=== PATIENT | male | born 1935 | race Caucasian/White ===

== ENCOUNTER 2017-04-05 19:50 | Emergency (ER) | payer MEDICARE, BC ==
[~2017-04-05] VITALS: Ht 185.4 cm; Wt 88.0 kg
[2017-04-05 19:55] VITALS: BP 214/99; PULSE 70; RESP 20; TEMP 97.7; O2SAT 96
[2017-04-05] MEDS ORDERED: LATA0.002 EACH EYE (20:44)
[2017-04-05] MEDS ORDERED: ASPI81CH CHEW (20:44)
[2017-04-05] MEDS ORDERED: BRIM0.155 EACH EYE (20:44)
[2017-04-05] MEDS ORDERED: DIGO0.12 PO (20:44)
[2017-04-05 20:45] VITALS: BP 175/93; PULSE 62; RESP 18; O2SAT 95
[2017-04-05] MEDS ORDERED: VENTAER INH (20:45)
--- NOTE | 2017-04-05 20:47 | PD ---
HPI Chief Complaint: Back/ Neck Pain or Injury Time Seen by Provider: 20:47 Travel History International Travel<30 days: No Contact w/Intl Traveler<30days: No Traveled to known affect area: No History of Present Illness HPI 82-year-old male with history of COPD, A. fib on aspirin, presents to emergency department following a slip and fall. Patient states that he stepped in a water in his kitchen and fell, landing on his right hip and striking his head. He did not lose consciousness. Reports right hip pain, primarily posteriorly. He was assisted up but states this exacerbated his pain. Denies any chest or tenderness. No difficulty breathing. Patient has no other symptoms to report. PFSH Past Medical History Atrial Fibrillation: Yes Cardiovascular Problems: Yes (afib) COPD: Yes Glaucoma: Yes Inguinal Hernia: Yes Respiratory: Yes (copd) Past Surgical History Tonsillectomy: Yes Social History Alcohol Use: Yes (daily) Tobacco Use: No Substance Use: No Allergies-Medications (Allergen,Severity, Reaction): Coded Allergies: No Known Allergies (Unverified , 04/05/17) Reported Meds & Prescriptions Reported Meds & Active Scripts Active Reported Ventolin Hfa 18 GM Inh (Albuterol Sulfate) 90 Mcg/Act Aer 2 Puff INH Q4H PRN Brimonidine Opth Drops (Brimonidine Tartrate) 0.15% Soln 1 Drop EACH EYE TID Latanoprost Opth Drops (Latanoprost) 0.005% Drops 1 Drop EACH EYE HS Refrigerate until opened. Digoxin 0.125 Mg Tab 0.125 Mg PO DAILY Aspirin 81 Mg Chew 81 Mg CHEW DAILY Review of Systems Except as stated in HPI: all other systems reviewed are Neg Physical Exam Narrative GENERAL: Well-nourished elderly male patient, sitting up on stretcher, in no acute distress SKIN: Focused skin assessment warm/dry. HEAD: Atraumatic. Normocephalic. Slight ecchymosis forming under the right eye. EYES: Pupils equal and round. No scleral icterus. EOMI No injection or drainage. ENT: No nasal bleeding or discharge. Mucous membranes pink and moist. NECK: Trachea midline. No JVD. No cervical spine tenderness to palpation. CARDIOVASCULAR: Regular rate and rhythm. No murmur appreciated. RESPIRATORY: No accessory muscle use. Clear to auscultation. Breath sounds equal bilaterally. No tenderness with palpation of the thoracic cage. No crepitus. GASTROINTESTINAL: Abdomen soft, non-tender, nondistended. Hepatic and splenic margins not palpable. MUSCULOSKELETAL: No obvious deformities. No clubbing. No cyanosis. No edema. No spinal tenderness to palpation. There is tenderness with palpation in the right lower back. Patient also reports pain radiating to his right hip with deep inspiration. NEUROLOGICAL: Awake and alert. No obvious cranial nerve deficits. Motor grossly within normal limits. Normal speech. PSYCHIATRIC: Appropriate mood and affect; insight and judgment normal. Data Data Last Documented VS Vital Signs Date Time Temp Pulse Resp B/P Pulse Ox O2 Delivery O2 Flow Rate FiO2 04/05/17 20:45 62 18 175/93 95 Room Air 04/05/17 19:55 97.7 Orders Ketorolac Inj (Toradol Inj) (04/05/17 21:00) Orphenadrine Inj (Norflex Inj) (04/05/17 21:00) Ct Brain W/O Iv Contrast(Rout) (04/05/17 ) Chest, Single Ap (04/05/17 ) Hip, Uni(Ap&Lat) W Ap Pelvis (04/05/17 ) MDM Medical Decision Making Medical Screen Exam Complete: Yes Emergency Medical Condition: Yes Medical Record Reviewed: Yes Differential Diagnosis Fracture versus sprain versus contusion versus dislocation versus minor head injury versus intracranial hemorrhage Narrative Course 82-year-old male presents to the emergency department for evaluation following a slip and fall. Patient is awake, alert, and oriented 3. He has no focal deficits or weakness. He did strike his head. He is on aspirin. He also reports right posterior hip pain/low back pain. Imaging studies were ordered. Patient is treated for pain. CT of the brain is without any intracranial abnormality. X-ray of the chest, pelvis, and right hip are all without acute bony abnormality. On reassessment, patient is sitting up in a stretcher, with no pain at this time. He will be ambulated. Pending note difficulty with this, patient will be discharged home. He agrees to return immediately with any acute worsening of symptoms. Diagnosis Primary Impression: Low back strain Qualified Code: S39.012A - Low back strain, initial encounter Additional Impressions: Contusion of hip Qualified Code: S70.01XA - Contusion of right hip, initial encounter Minor head injury without loss of consciousness Qualified Code: S09.90XA - Minor head injury without loss of consciousness, initial encounter Referrals: Primary Care Physician Patient Instructions: Contusion in Adults (ED), General Instructions, Head Injury (ED), Lower Back Exercises (ED) Additional Instructions: Ice and/or warm moist heat may help alleviate symptoms Follow-up with a primary care provider Avoid activities exacerbates pain Tylenol or ibuprofen as directed on the package as needed for pain Avoid prolonged bedrest Return immediately with any acute worsening of symptoms Med/Other Pt SpecificInfo: Prescription(s) given Scripts Methocarbamol (Robaxin)500 Mg Klv653 Mg PO QID PRN (MUSCLE SPASM) #20 TAB Ref 0 Prov:Rosette Clay 04/05/17 Disposition: 01 DISCHARGE HOME Condition: Stable Rosette Clay Apr 05, 2017 20:47
[2017-04-05] MEDS ORDERED: ORPHENADRINE INJ 60 MG/2 ML AMP IM ONE (21:00)
[2017-04-05] MEDS ORDERED: KETOROLAC TROMETHAMINE 60 MG/2 ML (IM) VIAL IM ONE (21:00)
--- NOTE | 2017-04-05 21:35 | RADRPT ---
EXAM DATE/TIME: 04/05/2017 21:18 [facility] COMPARISON: No previous studies available for comparison. INDICATIONS : Trauma, fall. RADIATION DOSE: 56.35 CTDIvol (mGy) MEDICAL HISTORY : Cardiovascular disease. SURGICAL HISTORY : None. ENCOUNTER: Initial ACUITY: 1 day PAIN SCALE: 3/10 LOCATION: cranial TECHNIQUE: Multiple contiguous axial images were obtained of the head. Using automated exposure control and adj ustment of the mA and/or kV according to patient size, radiation dose was kept as low as reasonably a chievable to obtain optimal diagnostic quality images. DICOM format image data is available electro nically for review and comparison. FINDINGS: CEREBRUM: The ventricles are normal for age with diffuse atrophic change. No evidence of midline shift, mass le cristiano, hemorrhage or acute infarction. No extra-axial fluid collections are seen. POSTERIOR FOSSA: The cerebellum and brainstem are intact. The 4th ventricle is midline. The cerebellopontine angle i s unremarkable. EXTRACRANIAL: The visualized portion of the orbits is intact. SKULL: The calvaria is intact. No evidence of skull fracture. CONCLUSION: Negative trauma study with atrophy. Isak Linares MD on April 05, 2017 at 21:32 Board Certified Radiologist. This report was verified electronically.
--- NOTE | 2017-04-05 21:37 | RADRPT ---
EXAM DATE/TIME: 04/05/2017 21:04 [facility] COMPARISON: No previous studies available for comparison. INDICATIONS : Shortness of breath after fall. MEDICAL HISTORY : Chronic obstructive pulmonary disease. A-fib. Glaucoma. SURGICAL HISTORY : Inguinal hernia repair. ENCOUNTER: Initial ACUITY: 1 day PAIN SCORE: 0/10 LOCATION: Bilateral chest FINDINGS: A single AP view of the chest was obtained and demonstrates streaky opacity in the right perihilar re gion and both lung bases. The heart size at the upper limits of normal. There is blunting of the righ t costophrenic angle. Degenerative changes are noted in the thoracic spine. There is right apical ple ural-parenchymal change. CONCLUSION: Streaky opacity in both lungs with blunting the right costophrenic angle. Chronicity of findings is not known and this could represent chronic scarring. Isak Linares MD on April 05, 2017 at 21:34 Board Certified Radiologist. This report was verified electronically.
--- NOTE | 2017-04-05 21:38 | RADRPT ---
EXAM DATE/TIME: 04/05/2017 21:04 [facility] COMPARISON: No previous studies available for comparison. INDICATIONS : Right hip pain after fall. MEDICAL HISTORY : Chronic obstructive pulmonary disease. A-fib. Glaucoma. SURGICAL HISTORY : Inguinal hernia repair. ENCOUNTER: Initial ACUITY: 1 day PAIN SCORE: 10/10 LOCATION: Right hip FINDINGS: Examination of the right hip was performed with AP Pelvis. The primary and secondary trabecular alejandra didier of the femoral neck is intact. The hip joint is of normal width without significant sclerosis or bony hypertrophy. The acetabulum is grossly intact. There is mild osteopenia. There are overlying s urgical clips. CONCLUSION: Negative trauma study. Isak Linares MD on April 05, 2017 at 21:36 Board Certified Radiologist. This report was verified electronically.
[2017-04-05] MEDS ORDERED: ROBA500T PO (22:08)
== END 2017-04-05 22:42 | disposition home or self-care (01) ==
LOC: NEPE 19:50
DX: S39.012A Strain of muscle, fascia and tendon of lower back, initial encounter (principal); S70.01XA Contusion of right hip, initial encounter; S09.90XA Unspecified injury of head, initial encounter; W01.0XXA Fall on same level from slipping, tripping and stumbling without subsequent striking against object, initial encounter; I25.10 Atherosclerotic heart disease of native coronary artery without angina pectoris; I48.91 Unspecified atrial fibrillation; J44.9 Chronic obstructive pulmonary disease, unspecified; Z79.82 Long term (current) use of aspirin
CPT/HCPCS: 70450; 71010; 73502; 96372; 99284; J1885; J2360

== ENCOUNTER 2018-11-18 08:16 | Inpatient (IN) ==
[2018-11-18] MEDS ORDERED: dilTIAZem Inj 125 MG in Sodium Chlor 0.9% Inj 100 ML IV.CONT PRN (08:36)
--- NOTE | 2018-11-18 08:43 | ED ---
HPI General Chief Complaint: Arrhythmia / Palpitations Stated Complaint: Cardiac Time Seen by Provider: 11/18/18 08:28 Source: patient Mode of arrival: ambulatory Limitations: no limitations History of Present Illness MD complaint: Reports atrial fibrillation Onset (ago): minute(s) (It was noted on awakening this morning) Duration: constant Severity: mild Context: Reports occurred during rest Arrhythmia history: Reports atrial fibrillation (On Lanoxin) Associated symptoms: Reports shortness of breath Treatments prior to arrival: Reports calcium channel shaheen (He was given 2 doses of Cardizem, 20 mg followed by 25 mg IV via [facility]) Related Data Home Medications Medication Instructions Recorded Confirmed aspirin [Aspir-81] 81 mg PO DAILY 10/23/18 11/18/18 digoxin 0.125 mg PO DAILY 10/23/18 11/18/18 Allergies Allergy/AdvReac Type Severity Reaction Status Date / Time No Known Allergies Allergy Uncoded 06/16/17 10:39 Review of Systems ROS: all other systems reviewed are negative Musculoskeletal Reports other (Sciatica of the left leg) [facility] Medical History Medical History Atrial fibrillation (Acute) COPD (chronic obstructive pulmonary disease) (Acute) HTN (hypertension) (Acute) Osteoarthritis (Acute) Sciatica (Acute) Social History Social History Substance History: No History of Abuse Second Hand Smoke Exposure: No Smoking Status: Never smoker Tobacco Type: Cigarettes How Often Do You Have a Drink Containing Alcohol: 2 to 4 times a month Recent Travel in [facility] within the Last 8 Weeks: No Exam Const General: cooperative, healthy appearing and comfortable Orientation: alert, awake and oriented x3 HENMT Head: normal to inspection, normocephalic and atraumatic Eyes General: appearance normal, both eyes and all related structures Conjunctivae: conjunctivae normal Sclera: sclerae normal EOM: EOM intact bilaterally Neck Neck: normal visual inspection and full ROM Chest Chest: normal inspection of the chest Resp Effort & Inspection: normal respiratory effort and able to speak in complete sentences Auscultation: clear to auscultation bilaterally Cardio Rate: tachycardic Rhythm: abnormal rhythm irregularly irregular Heart Sounds: S1 normal and S2 normal GI Inspection: normal to inspection Palpation: soft Back/Spine/Pelvis Cervical Spine: cervical ROM normal Thoracic/Lumbar Spine: thoraco-lumbar ROM normal Skin General: no rashes or lesions noted, turgor normal and dry skin Neuro General: alert, awake, oriented x3, moves all extremities and CN's II-XI intact bilaterally Extrem General: normal to inspection, full ROM and no pedal edema Psych Appearance: grossly normal Mental Status: mental status grossly normal Speech and Movement: speech and movement normal Mood: congruent mood Affect: normal affect Attitude: cooperative Thought Process: normal Thought Content: normal Judgment: judgment good Course Initial Documented Vital Signs Pulse Rate 112 H 11/18/18 08:31 Respiratory Rate 21 11/18/18 08:31 Blood Pressure 141/91 H 11/18/18 08:31 Pulse Oximetry 95 11/18/18 08:31 Last Documented Vital Signs Pulse Rate 83 11/18/18 09:08 Respiratory Rate 21 11/18/18 08:40 Blood Pressure 129/69 11/18/18 09:08 Pulse Oximetry 95 11/18/18 08:42 Critical Care Time Critical Care Time: Yes Total Critical Care Time: 30 Attestation: Time to perform other separately billable procedures was not included in the critical care time. My time did not include minutes spent treating any other patients simultaneously or on activities that did not directly contribute to the patient's treatment. The services I provided to this patient were to treat and/or prevent clinically significant deterioration due to A. fib with RVR I provided critical care services requiring my management, as noted below: Chart data review, documentation time, medication orders and management, vital sign assessments/reviewing monitor data, ordering and reviewing lab tests, ordering and interpreting/reviewing x-rays and diagnostic studies, care of the patient and discussion of the patient with the admitting physicians Medical Decision Making MDM Narrative Medical decision making narrative: This patient is brought to us by [facility] because of atrial fibrillation with a rapid ventricular response. The patient has a known history of atrial fibrillation and is treated with Lanoxin. He believes that his underlying cardiac rhythm is sinus. He does not take any anticoagulants so he may be correct. He reports that he is now feeling much better since his rate has slowed. Chest pain workup is in process. I have added a Lanoxin level. He continues to be tachycardic between 100 and 120. I will start a Cardizem drip. The patient has been given a dose of IV Lasix. His digoxin level is low. He will be given a dose of IV Lanoxin. He will be observed here for period of time. I will repeat his troponin. Second troponin is flat. He remains in atrial fibrillation now with a controlled rate. He is on a Cardizem drip. Medical Screen Exam Complete: Yes Emergency Medical Condition: Yes Differential Diagnosis Differential Diagnosis: Differential diagnosis of tachycardia includes but is not limited to PSVT, atrial fibrillation with a rapid ventricular response, sinus tachycardia (due to hypovolemia, anemia, thyrotoxicosis, PE) Medical Records Medical records reviewed: Yes I reviewed the patient's medical records. I have been unable to find any previous EKGs for comparison Lab Data Lab results reviewed: Yes I reviewed the patient's lab results. Result diagrams: 11/18/18 08:55 11/18/18 08:55 Lab Results 11/18/18 11/18/18 11/18/18 Range/Units 08:55 08:55 08:55 WBC 6.0 (4.0-11.0) th/mm3 RBC 4.44 L (4.50-5.90) mil/mm3 Hgb 15.4 (13.0-17.0) gm/dL Hct 43.5 (39.0-51.0) % MCV 97.8 (80.0-100.0) fL MCH 34.6 H (27.0-34.0) pg MCHC 35.3 (32.0-36.0) % RDW 13.5 (11.6-17.2) % Plt Count 154 (150-450) th/mm3 MPV 7.8 (7.0-11.0) fL Neut % (Auto) 69.0 (16.0-70.0) % Lymph % (Auto) 19.2 (9.0-44.0) % [place] % (Auto) 10.9 H (0.0-8.0) % Eos % (Auto) 0.6 (0.0-4.0) % Baso % (Auto) 0.3 (0.0-2.0) % Neut # (Auto) 4.2 (1.8-7.7) th/mm3 Lymph # (Auto) 1.2 (1.0-4.8) th/mm3 [place] # (Auto) 0.7 (0.0-0.9) th/mm3 Eos # (Auto) 0.0 (0.0-0.4) th/mm3 Baso # (Auto) 0.0 (0.0-0.2) th/mm3 WBC Differential . Differential Comment Auto diff final PT 10.7 (9.8-11.6) sec INR 1.1 Ratio APTT 27.1 (23.4-31.7) sec Sodium 144 (136-145) meq/L Potassium 3.9 (3.5-5.1) meq/L Chloride 108 H (98-107) meq/L Carbon Dioxide 24.6 (21.0-32.0) meq/L Anion Gap 11 (5-15) meq/L BUN 17 (7-18) mg/dL Creatinine 1.15 (0.60-1.30) mg/dL Estimated GFR 61 L (>89) mL/min Random Glucose 107 H (74-106) mg/dL Calcium 8.9 (8.5-10.1) mg/dL Total Bilirubin 0.9 (0.2-1.0) mg/dL AST 18 (15-37) U/L ALT 25 (12-78) U/L Alkaline Phosphatase 79 (45-117) U/L Troponin I 0.09 H (0.02-0.05) ng/mL Total Protein 7.2 (6.4-8.2) g/dL Albumin 3.8 (3.4-5.0) g/dL Digoxin 0.3 L (0.8-2.0) ng/mL 11/18/18 Range/Units 13:45 WBC (4.0-11.0) th/mm3 RBC (4.50-5.90) mil/mm3 Hgb (13.0-17.0) gm/dL Hct (39.0-51.0) % MCV (80.0-100.0) fL MCH (27.0-34.0) pg MCHC (32.0-36.0) % RDW (11.6-17.2) % Plt Count (150-450) th/mm3 MPV (7.0-11.0) fL Neut % (Auto) (16.0-70.0) % Lymph % (Auto) (9.0-44.0) % [place] % (Auto) (0.0-8.0) % Eos % (Auto) (0.0-4.0) % Baso % (Auto) (0.0-2.0) % Neut # (Auto) (1.8-7.7) th/mm3 Lymph # (Auto) (1.0-4.8) th/mm3 [place] # (Auto) (0.0-0.9) th/mm3 Eos # (Auto) (0.0-0.4) th/mm3 Baso # (Auto) (0.0-0.2) th/mm3 WBC Differential Differential Comment PT (9.8-11.6) sec INR Ratio APTT (23.4-31.7) sec Sodium (136-145) meq/L Potassium (3.5-5.1) meq/L Chloride (98-107) meq/L Carbon Dioxide (21.0-32.0) meq/L Anion Gap (5-15) meq/L BUN (7-18) mg/dL Creatinine (0.60-1.30) mg/dL Estimated GFR (>89) mL/min Random Glucose (74-106) mg/dL Calcium (8.5-10.1) mg/dL Total Bilirubin (0.2-1.0) mg/dL AST (15-37) U/L ALT (12-78) U/L Alkaline Phosphatase (45-117) U/L Troponin I 0.10 H (0.02-0.05) ng/mL Total Protein (6.4-8.2) g/dL Albumin (3.4-5.0) g/dL Digoxin (0.8-2.0) ng/mL Imaging Data Attestation: I personally reviewed and interpreted this imaging study as follows : Radiologist's impression: Chest X-Ray 11/18/18 08:34 CONCLUSION: Minimal increase in congestive failure. ECG Data EKG Prior to Arrival: Yes Attestation: I personally reviewed and interpreted this ECG as follows: (EKG shows atrial fibrillation with a rate of 104. No acute STT wave changes.) Discharge Plan Discharge Disposition Patient Disposition: ED Admit(ED Internal Use Only) Discharge Order Discharge Orders: ED Use Only Admit Order (Routine); Ordered 11/18/18 Ordered By: Lennie Penn Discharge Details Diagnosis: Atrial fibrillation with RVR, Congestive heart failure, Elevated troponin Physicians Team ED Provider: Lennie Penn Primary Care Provider: Vik Lincoln Attending Provider: Gaby Martini Rxs /Orders / Referrals /Forms Prescriptions: No Action digoxin 125 mcg Tablet 0.125 mg PO DAILY RF: 0 aspirin [Aspir-81] 81 mg Tablet,Delayed Release (Dr/Ec) 81 mg PO DAILY RF: 0 Status ED Status: With Doctor
--- NOTE | 2018-11-18 08:59 | XR ---
EXAM DATE: 11/18/2018 8:55 AM EST AGE/SEX: 83 years / Male INDICATIONS: Short of breath. CLINICAL DATA: This is the patient's initial encounter. Patient reports that signs and symptoms have been present for 1 day and indicates a pain score of 0/10. MEDICAL/SURGICAL HISTORY: Chronic obstructive pulmonary disease. A-fib. None. COMPARISON: [facility] – [place], CHEST SINGLE AP, 04/05/2017. . FINDINGS: The heart is enlarged. Moderate interstitial edema is present. Scattered pleural calcifications with parenchymal changes are noted stable in the interval. There is no pneumothorax. There is no significant pleural effusion. Degenerative changes about both shoulders CONCLUSION: Minimal increase in congestive failure. Electronically signed by: Pancho Novak MD Board Certified Radiologist 11/18/2018 8:58 AM EST
[2018-11-18 09:07] LABS: Baso % (Auto) 0.3 % (0.0-2.0); Eos % (Auto) 0.6 % (0.0-4.0); Hematocrit 43.5 % (39.0-51.0); Hemoglobin 15.4 gm/dL (13.0-17.0); Lymph # (Auto) 1.2 th/mm3 (1.0-4.8); Lymph % (Auto) 19.2 % (9.0-44.0); Mean Corpuscular HGB Conc 35.3 % (32.0-36.0); Mean Corpuscular Hemoglobin 34.6 pg (27.0-34.0); Mean Corpuscular Volume 97.8 fL (80.0-100.0); Mean Platelet Volume 7.8 fL (7.0-11.0); Mono # (Auto) 0.7 th/mm3 (0.0-0.9); Mono % (Auto) 10.9 % (0.0-8.0); Neut # (Auto) 4.2 th/mm3 (1.8-7.7); Platelet Count 154 th/mm3 (150-450); Red Blood Count 4.44 mil/mm3 (4.50-5.90); Red Cell Distribution Width 13.5 % (11.6-17.2)
[2018-11-18 09:18] LABS: Activated Partial Thrombo Time 27.1 sec (23.4-31.7); INR 1.1 Ratio; Prothrombin Time 10.7 sec (9.8-11.6)
[2018-11-18 09:28] LABS: Albumin 3.8 g/dL (3.4-5.0); Anion Gap 11 meq/L (5-15); Aspartate Aminotransferase 18 U/L (15-37); Blood Urea Nitrogen 17 mg/dL (7-18); Calcium 8.9 mg/dL (8.5-10.1); Carbon Dioxide 24.6 meq/L (21.0-32.0); Chloride 108 meq/L (98-107); Glomerular Filtration Rate 61 mL/min (>89); Glucose,Random 107 mg/dL (74-106); Potassium 3.9 meq/L (3.5-5.1); Sodium 144 meq/L (136-145)
[2018-11-18 09:29] LABS: Alanine Aminotransferase 25 U/L (12-78)
[2018-11-18 09:43] LABS: Alkaline Phosphatase 79 U/L (45-117); Digoxin 0.3 ng/mL (0.8-2.0); Total Protein 7.2 g/dL (6.4-8.2); Troponin I 0.09 ng/mL (0.02-0.05)
[2018-11-18] MEDS ORDERED: Heparin 10,000 UNITS/10 ML Vial (for IV use) IV.PUSH STA (10:02)
[2018-11-18] MEDS ORDERED: Heparin Drip 25,000 UNIT/250 ML BAG IV.CONT PRN (10:02)
[2018-11-18] MEDS ORDERED: Digoxin Inj 500 MCG/2 ML Ampul IV.PUSH ONE (10:20)
[2018-11-18] MEDS ORDERED: Bisacodyl 10 MG Supp RECTAL PRN (14:56)
[2018-11-18] MEDS ORDERED: Metoprolol Tartrate 25 MG Tablet PO ONE (14:56)
[2018-11-18] MEDS ORDERED: Enoxaparin Inj 40 MG/0.4 ML Syringe SQ SCH (15:00)
--- NOTE | 2018-11-18 15:05 | P.HPIM ---
History of Present Illness Service: Hospitalist Primary Care Physician: Vik Lincoln Chief Complaint: Rapid heartbeat History of Present Illness: Mr. Long is a pleasant 83-year-old male with a history of atrial fibrillation, COPD who presents to the emergency department on 11/18/2018 due to shortness of breath. Patient woke up around 3 AM with shortness of breath. He waited and around 7 AM he again began shortness of breath. He did not have any chest pain, nausea or vomiting or diaphoresis. He checked his vitals and his heart rate was in the 190s. He subsequently called EMS. In the ED his EKG showed atrial fibrillation with RVR in the right around 140s. Patient was given Cardizem IV push as well as Cardizem drip. Patient does not follow-up with strategic buyer. His PCP started digoxin for atrial fibrillation several years ago. He takes aspirin for prophylaxis. He denies any cough, abdominal pain, fever or chills. He denies any changes in bowel or bladder habits. Past medical history: COPD, atrial fibrillation Past surgical history: Bilateral inguinal hernia repair. Social history: Patient does not use tobacco or illicit drugs. However he consumes vodka, wine and scotch every day and fixed amounts. Family history: No family history of Alzheimer's dementia or Parkinson's disease. Review of Systems Review of Systems: all other systems reviewed are negative [facility] Medical History Medical History Atrial fibrillation (Acute) COPD (chronic obstructive pulmonary disease) (Acute) HTN (hypertension) (Acute) Osteoarthritis (Acute) Sciatica (Acute) Social History Social History Substance History: No History of Abuse Second Hand Smoke Exposure: No Smoking Status: Never smoker Tobacco Type: Cigarettes How Often Do You Have a Drink Containing Alcohol: 2 to 4 times a month Recent Travel in [facility] within the Last 8 Weeks: No Immunization History Tetanus Immunization: >5 Years Medications and Allergies Allergies Allergy/AdvReac Type Severity Reaction Status Date / Time No Known Allergies Allergy Uncoded 06/16/17 10:39 Home Medications Medication Instructions Recorded Confirmed Type aspirin [Aspir-81] 81 mg PO DAILY 10/23/18 11/18/18 History digoxin 0.125 mg PO DAILY 10/23/18 11/18/18 History Active Medications: Active Medications Acetaminophen (Tylenol) 650 mg PO Q4H PRN PRN Reason: Headache, fever, pain 1-4 Al Hydroxide/Mg Hydroxide (Milk Of Magnesia Liq) 30 ml PO Q12H PRN PRN Reason: Mild Constipation Bisacodyl (Dulcolax Supp) 10 mg RECTAL DAILY PRN PRN Reason: SEVERE CONSITIPATION Diltiazem HCl (Cardizem Inj) 34 mg IV.PUSH BOLUS PRN PRN Reason: Inadaquate response Last Admin: 11/18/18 09:03 Dose: 34 mg Enoxaparin Sodium (Lovenox Inj) 40 mg SQ Q24H SUNDAR Diltiazem HCl 125 mg/ Sodium (Chloride) 125 mls @ 5 mls/hr IV.CONT TITRATE PRN ; Protocol PRN Reason: Per Protocol Last Admin: 11/18/18 11:46 Dose: 5 mg/hr, 5 mls/hr Lactulose (Lactulose Liq) 30 ml PO DAILY PRN PRN Reason: SEVERE CONSITIPATION Metoprolol Tartrate (Lopressor) 25 mg PO BID SUNDAR Metoprolol Tartrate (Lopressor) 25 mg PO ONCE ONE Stop: 11/18/18 14:57 Ondansetron HCl (Zofran Inj) 4 mg IV.PUSH Q6H PRN PRN Reason: NAUSEA OR VOMITING Sennosides (Senokot) 17.2 mg PO Q12H PRN PRN Reason: Moderate Constipation Sodium Chloride (Ns Flush) 2 ml IV.FLUSH UNSCH PRN PRN Reason: FLUSH AFTER USING IV ACCESS Sodium Chloride (Ns Flush) 2 ml IV.FLUSH BID SUNDAR Sodium Chloride (Ns Flush) 2 ml IV.FLUSH PRN PRN PRN Reason: FLUSH AFTER USING IV ACCESS Physical Exam Vital signs: Vital Signs 11/18/18 08:31 11/18/18 08:40 11/18/18 08:42 Pulse Rate 112 H 112 H 112 H Respiratory Rate 21 21 Blood Pressure 141/91 H 141/91 H Pulse Oximetry 95 95 95 11/18/18 09:08 Pulse Rate 83 Respiratory Rate Blood Pressure 129/69 Pulse Oximetry Intake & Output 11/17/18 11/18/18 11/18/18 18:59 06:59 18:59 Output Total 1100 / 1100 Balance -1100 / -1100 Weight 97.522 kg Output: Urine 1100 / 1100 Narrative: GENERAL: This is a well-nourished, well-developed patient, in no apparent distress. SKIN: No rashes, ecchymoses or lesions. Warm and dry. HEAD: Atraumatic. Normocephalic. No temporal or scalp tenderness. EYES: Pupils equal round and reactive. No injection or drainage. ENT: Nose without bleeding, purulent drainage or septal hematoma. Airway patent. NECK: Trachea midline. No lymphadenopathy. Supple, nontender, no meningeal signs. CARDIOVASCULAR: Irregular irregular without murmurs, gallops, or rubs. No JVD. RESPIRATORY: Clear to auscultation. Breath sounds equal bilaterally. No wheezes , rales, or rhonchi. GASTROINTESTINAL: Abdomen soft, non-tender, nondistended. No guarding. MUSCULOSKELETAL: Extremities without clubbing, cyanosis, or edema. NEUROLOGICAL: Awake and alert. Cranial nerves II through XII intact. No focal neurological deficits. Normal speech. Results Labs CBC & Chem 7: 11/18/18 08:55 11/18/18 08:55 Imaging Impressions Chest X-Ray 11/18/18 08:34 CONCLUSION: Minimal increase in congestive failure. Caprini VTE Risk Assessment Caprini VTE Risk Assessment: Moderate/High Risk (score >= 2) Caprini Risk Assessment Model: Point Value = 1 Point Value = 2 Point Value = 3 Point Value = 5 Age 41-60 Minor surgery BMI > 25 kg/m2 Swollen legs Varicose veins or History of unexplained or recurrent spontaneous Oral contraceptives or hormone replacement Sepsis (< 1 month) Serious lung disease, including pneumonia (< 1 month) Abnormal pulmonary function Acute myocardial infarction Congestive heart failure (< 1 month) History of inflammatory bowel disease Medical patient at bed rest Age 61-74 Arthroscopic surgery Major open surgery (> 45 min) Laparoscopic surgery (> 45 min) Malignancy Confined to bed (> 72 hours) Immobilizing plaster cast Central venous access Age >= 75 History of VTE Family history of VTE Factor V Leiden Prothrombin [id number] Lupus anticoagulant Anticardiolipin antibodies Elevated serum homocysteine Heparin-induced thrombocytopenia Other congenital or acquired thrombophilia Stroke (< 1 month) Elective arthroplasty Hip, pelvis, or leg fracture Acute spinal cord injury (< 1 month) Prophylaxis Regimen: Total Risk Factor Score Risk Level Prophylaxis Regimen 0-1 Low Early ambulation 2 Moderate Order ONE of the following: *Sequential Compression Device (SCD) *Heparin 5000 units SQ BID 3-4 Higher Order ONE of the following medications: *Heparin 5000 units SQ TID *Enoxaparin/Lovenox 40 mg SQ daily (WT < 150 kg, CrCl > 30 mL/min) *Enoxaparin/Lovenox 30 mg SQ daily (WT < 150 kg, CrCl > 10-29 mL/min) *Enoxaparin/Lovenox 30 mg SQ BID (WT < 150 kg, CrCl > 30 mL/min) AND/OR *Sequential Compression Device (SCD) 5 or more Highest Order ONE of the following medications: *Heparin 5000 units SQ TID (Preferred with Epidurals) *Enoxaparin/Lovenox 40 mg SQ daily (WT < 150 kg, CrCl > 30 mL/min) *Enoxaparin/Lovenox 30 mg SQ daily (WT < 150 kg, CrCl > 10-29 mL/min) *Enoxaparin/Lovenox 30 mg SQ BID (WT < 150 kg, CrCl > 30 mL/min) AND *Sequential Compression Device (SCD) Assessment and Plan Plan Mr. Long is a pleasant 83-year-old male with a history of atrial fibrillation, COPD who presents to the emergency department due to shortness of breath. His heart rate at home was in the 190s and irregular. In the emergency department he was found to have atrial fibrillation with RVR. Patient was on digoxin as well as aspirin at home. Atrial fibrillation with rapid ventricular response Currently on diltiazem drip. Will start patient on metoprolol 25 mg twice daily We will try to wean off diltiazem. I discussed at length regarding rate control and anticoagulation with regards to atrial fibrillation. [id number] score 2 (Age). Patient does not follow-up with a strategic buyer. We will consult cardiology for evaluation and also for future follow-ups. We will check TSH level as well as an echocardiogram After discussing with patient, cardiology started patient on Apixaban. COPD No acute concerns. Supplemental oxygen to keep O2 saturation around 90%. I will add ipratropium nebulizer treatments. Elevated troponin -Likely tachycardia induced. No chest pain. -Trops are 0.09, 0.10 and 0.10. No further work up needed at this time. Full code. Cardiology started Apixaban.
[2018-11-18] MEDS ORDERED: Heparin 10,000 UNITS/10 ML Vial (for IV use) IV.PUSH PRN (16:02)
--- NOTE | 2018-11-18 17:19 | P.CONCA ---
History of Present Illness Service: Cardiology Consult date: 11/18/18 Requesting Physician: Gaby Martini Reason for Consult: Atrial fibrillation with RVR Primary Care Provider: Vik Lincoln Chief Complaint: Rapid heartbeat History of Present Illness: This is a pleasant 83-year-old male with a past medical history of atrial fibrillation, COPD, hypertension, osteoarthritis and sciatica. He presented to the Emergency Department today with complaints of increase SOB since earlier this morning. He states that he woke up at 03:00 due to shortness of breath and stayed awake until 07:00 at which time he started to become more short of breath, so he took his pulse and found it to be in the 190's. At this time he call EMS and was transported to the Emergency Department for further evaluation and treatment. He denied any CP, pressure or dizziness during this episode. Currently, he denies any CP, pressure, palpitations, dizziness, edema or SOB. He states that he is feeling better. He is currently in atrial fibrillation with a controlled VR, on a Cardizem gtt. Review of Systems All other systems reviewed negative except as stated in HPI PMFSH - History History Provided By: Patient, Director Industrial Nursing / EMT - Medical History Medical History: Medical History (Last Reviewed 11/18/18 @ 08:40 by Lennie Penn) Atrial fibrillation COPD (chronic obstructive pulmonary disease) HTN (hypertension) Osteoarthritis Sciatica - Tobacco History Second Hand Smoke Exposure: No Smoking Status: Never smoker Tobacco Type: Cigarettes - Alcohol History How Often Do You Have a Drink Containing Alcohol: 2 to 4 times a month - Substance Use History Substance History: No History of Abuse - Travel History Recent Travel in the [facility] Within the Last 8 Weeks: No - Immunization History Tetanus Immunization: >5 Years Medications and Allergies Allergies Allergy/AdvReac Type Severity Reaction Status Date / Time No Known Allergies Allergy Uncoded 06/16/17 10:39 Home Medications Medication Instructions Recorded Confirmed Type aspirin [Aspir-81] 81 mg PO DAILY 10/23/18 11/18/18 History digoxin 0.125 mg PO DAILY 10/23/18 11/18/18 History Active Medications: Active Medications Acetaminophen (Tylenol) 650 mg PO Q4H PRN PRN Reason: Headache, fever, pain 1-4 Al Hydroxide/Mg Hydroxide (Milk Of Magnesia Liq) 30 ml PO Q12H PRN PRN Reason: Mild Constipation Apixaban (Eliquis) 5 mg PO BID SUNDAR Bisacodyl (Dulcolax Supp) 10 mg RECTAL DAILY PRN PRN Reason: SEVERE CONSITIPATION Diltiazem HCl (Cardizem Inj) 34 mg IV.PUSH BOLUS PRN PRN Reason: Inadaquate response Last Admin: 11/18/18 09:03 Dose: 34 mg Diltiazem HCl 125 mg/ Sodium (Chloride) 125 mls @ 5 mls/hr IV.CONT TITRATE PRN ; Protocol PRN Reason: Per Protocol Last Admin: 11/18/18 11:46 Dose: 5 mg/hr, 5 mls/hr Ipratropium [place] (Atrovent Neb) 0.5 mg NEB Q4HR NEB PRN PRN Reason: DYSPNEA Lactulose (Lactulose Liq) 30 ml PO DAILY PRN PRN Reason: SEVERE CONSITIPATION Metoprolol Tartrate (Lopressor) 25 mg PO BID SUNDAR Ondansetron HCl (Zofran Inj) 4 mg IV.PUSH Q6H PRN PRN Reason: NAUSEA OR VOMITING Sennosides (Senokot) 17.2 mg PO Q12H PRN PRN Reason: Moderate Constipation Sodium Chloride (Ns Flush) 2 ml IV.FLUSH UNSCH PRN PRN Reason: FLUSH AFTER USING IV ACCESS Sodium Chloride (Ns Flush) 2 ml IV.FLUSH BID SUNDAR Sodium Chloride (Ns Flush) 2 ml IV.FLUSH PRN PRN PRN Reason: FLUSH AFTER USING IV ACCESS Exam Vital signs: Vital Signs 11/18/18 08:31 11/18/18 08:40 11/18/18 08:42 Pulse Rate 112 H 112 H 112 H Respiratory Rate 21 21 Blood Pressure 141/91 H 141/91 H Pulse Oximetry 95 95 95 11/18/18 09:08 11/18/18 15:09 Pulse Rate 83 Respiratory Rate Blood Pressure 129/69 Pulse Oximetry 95 Intake & Output 11/17/18 11/18/18 11/18/18 18:59 06:59 18:59 Output Total 1100 / 1100 Balance -1100 / -1100 Weight 97.522 kg Output: Urine 1100 / 1100 - Constitutional no acute distress - Routine HEENT Exam Head: Present: normocephalic Eye: Present: PERRL ENT: Present: mucous membranes moist - Routine Neck Exam Present: full ROM - Routine Respiratory Exam Present: CTA bilaterally - Routine Cardiovascular Exam Present: S1, S2, irregular rhythm - Routine Abdominal Exam Present: normoactive bowel sounds - Routine Extremities Exam Present: full ROM, pulses intact, normal capillary refill. Absent: cyanosis, clubbing, edema - Routine Skin Exam Present: intact - Routine Neurological Exam Present: oriented X3 Results 11/18/18 08:55 11/18/18 08:55 Cardiac Enzymes 11/18/18 11/18/18 Range/Units 08:55 13:45 AST 18 (15-37) U/L Troponin I 0.09 H 0.10 H (0.02-0.05) ng/mL Coagulation 11/18/18 Range/Units 08:55 PT 10.7 (9.8-11.6) sec APTT 27.1 (23.4-31.7) sec CBC 11/18/18 Range/Units 08:55 WBC 6.0 (4.0-11.0) th/mm3 RBC 4.44 L (4.50-5.90) mil/mm3 Hgb 15.4 (13.0-17.0) gm/dL Hct 43.5 (39.0-51.0) % Plt Count 154 (150-450) th/mm3 Neut # (Auto) 4.2 (1.8-7.7) th/mm3 Lymph # (Auto) 1.2 (1.0-4.8) th/mm3 [place] # (Auto) 0.7 (0.0-0.9) th/mm3 Eos # (Auto) 0.0 (0.0-0.4) th/mm3 Baso # (Auto) 0.0 (0.0-0.2) th/mm3 Comprehensive Metabolic Panel 11/18/18 Range/Units 08:55 Sodium 144 (136-145) meq/L Potassium 3.9 (3.5-5.1) meq/L Chloride 108 H (98-107) meq/L Carbon Dioxide 24.6 (21.0-32.0) meq/L BUN 17 (7-18) mg/dL Creatinine 1.15 (0.60-1.30) mg/dL Calcium 8.9 (8.5-10.1) mg/dL AST 18 (15-37) U/L ALT 25 (12-78) U/L Alkaline Phosphatase 79 (45-117) U/L Total Protein 7.2 (6.4-8.2) g/dL Albumin 3.8 (3.4-5.0) g/dL Intake and Output 11/18/18 11/18/18 11/18/18 06:59 14:59 22:59 Output Total 1100 / 1100 Balance -1100 / -1100 Output: Urine 1100 / 1100 Other: Weight 97.522 kg Patient Weight 11/19/18 06:59 Weight 97.522 kg - Imaging and Cardiology Imaging: Impressions Chest X-Ray 11/18/18 08:34 CONCLUSION: Minimal increase in congestive failure. Assessment and Plan - Assessment (1) Atrial fibrillation with RVR Code(s): I48.91 - Unspecified atrial fibrillation Status: Acute (2) Congestive heart failure Code(s): I50.9 - Heart failure, unspecified Status: Acute (3) Elevated troponin Code(s): R74.8 - Abnormal levels of other serum enzymes Status: Acute - Plan He remains in atrial fibrillation with a controlled VR. We will continue Cardizem gtt and BB for rate control at this time. His creatinine is 1.17 and GFR 61, we will start Eliquis 5 mg PO BID for anticoagulation and D/C the Lovenox. We will recheck a BMP to monitor his renal function. We will obtain a 2D echo to evaluate LV function. Troponin levels are slightly elevated, likely related to the atrial fibrillation with RVR. We will continue to monitor for any signs of ACS. Continue to monitor the patient on telemetry. We will continue to monitor the patient during his hospitalization The patient was seen and evaluated by Dr. Tamayo who participated in care, management and decision making. - Attending Attestation Patient seen and examined. I reviewed and agree with the evaluation and plan as presented. Continue rate control and anticoagulation. DC cardioversion later if necessary. D/w pt and . (2) Congestive heart failure Qualifiers: Heart failure type: unspecified Heart failure chronicity: acute on chronic Qualified Code(s): I50.9 - Heart failure, unspecified
--- NOTE | 2018-11-18 20:09 | ECHRPT ---
Indication: ATRIAL FIB/FLUTTER CONCLUSIONS Normal left ventricular size. Wall thickness is normal. The left ventricular systolic function is low normal with an estimated ejection fraction in the rang e of 50- 55%. Increased atrial septal thickness. Trace mitral valve regurgitation. There is trace tricuspid valve regurgitation. The estimated pulmonary arterial pressure is 49 mmHg. BP: / HR: Rhythm: Atrial fibrillation MEASUREMENTS (Male / Female) Normal Values Technical Quality:Fair 2D ECHO LV Diastolic Diameter PLAX 4.8 cm 4.2 - 5.9 / 3.9 - 5.3 cm LV Systolic Diameter PLAX 3.8 cm IVS Diastolic Thickness 1.1 cm 0.6 - 1.0 / 0.6 - 0.9 cm LVPW Diastolic Thickness 1.0 cm 0.6 - 1.0 / 0.6 - 0.9 cm LV Relative Wall Thickness 0.4 RV Internal Dim ED PLAX 3.7 cm LVOT Diameter 1.9 cm Aortic Root Diameter 3.2 cm LA Systolic Diameter LX 4.1 cm 3.0 - 4.0 / 2.7 - 3.8 cm DOPPLER AV Peak Velocity 164.0 cm/s AV Peak Gradient 10.8 mmHg LVOT Peak Velocity 133.8 cm/s LVOT Peak Gradient 7.2 mmHg AV Area Cont Eq pk 2.3 cm Mitral E Point Velocity 121.5 cm/s LV E' Lateral Velocity 14.2 cm/s Mitral E to LV E' Lateral Ratio 8.6 LV E' Septal Velocity 8.4 cm/s Mitral E to LV E' Septal Ratio 14.5 TR Peak Velocity 312.0 cm/s TR Peak Gradient 38.9 mmHg Right Atrial Pressure 10.0 mmHg Pulmonary Artery Systolic Pressu 48.9 mmHg Right Ventricular Systolic Press 48.9 mmHg PV Peak Velocity 114.0 cm/s PV Peak Gradient 5.2 mmHg FINDINGS LEFT VENTRICLE Normal left ventricular size. Wall thickness is normal. The left ventricular systolic function is low normal with an estimated ejection fraction in the rang e of 50- 55%. RIGHT VENTRICLE Normal right ventricular size and systolic function. LEFT ATRIUM The left atrial size is normal. RIGHT ATRIUM The right atrial size is normal. ATRIAL SEPTUM Increased atrial septal thickness. AORTA The aortic root and proximal ascending aorta are normal in size on limited imaging. MITRAL VALVE Trace mitral valve regurgitation. AORTIC VALVE Trileaflet aortic valve. No aortic valve stenosis or regurgitation. TRICUSPID VALVE There is trace tricuspid valve regurgitation. The estimated pulmonary arterial pressure is 49 mmHg. PULMONARY VALVE No pulmonary valve regurgitation or stenosis. VESSELS The inferior vena cava is normal in size. PERICARDIUM No pericardial effusion. Marky Tamayo MD, FACC (Electronically Signed) Final Date:18 November 2018 20:08
--- NOTE | 2018-11-18 22:36 | ECG ---
Date Performed: 11/18/2018 Time Performed: 08:26:11 PTAGE: 83 years EKG: ATRIAL FIBRILLATION WITH RAPID VENTRICULAR RESPONSE MARKED LEFT AXIS DEVIATION INCOMPLETE R IGHT BUNDLE BRANCH BLOCK NONSPECIFIC T-WAVE ABNORMALITY ABNORMAL ECG NO PREVIOUS TRACING DOCTOR: Jaren Prabhakar Interpretating Date/Time 11/18/2018 22:35:22
[2018-11-19 08:03] LABS: Calcium 9.4 mg/dL (8.5-10.1); Carbon Dioxide 27.7 meq/L (21.0-32.0); Potassium 3.6 meq/L (3.5-5.1)
[2018-11-19] MEDS ORDERED: Metoprolol Tartrate 25 MG Tablet PO SCH (09:00)
--- NOTE | 2018-11-19 15:07 | P.PNCA ---
Subjective Interval history: Patient denies any CP, pressure, palpitations, dizziness, edema or SOB. He states that he is feeling much better at this time. Medications and Allergies Allergies Allergy/AdvReac Type Severity Reaction Status Date / Time No Known Allergies Allergy Verified 11/19/18 06:49 Home Medications Medication Instructions Recorded Confirmed Type aspirin [Aspir-81] 81 mg PO DAILY 10/23/18 11/18/18 History digoxin 0.125 mg PO DAILY 10/23/18 11/18/18 History Active Medications: Active Medications Acetaminophen (Tylenol) 650 mg PO Q4H PRN PRN Reason: Headache, fever, pain 1-4 Al Hydroxide/Mg Hydroxide (Milk Of Magnesia Liq) 30 ml PO Q12H PRN PRN Reason: Mild Constipation Apixaban (Eliquis) 5 mg PO BID [facility] Last Admin: 11/19/18 08:50 Dose: 5 mg Bisacodyl (Dulcolax Supp) 10 mg RECTAL DAILY PRN PRN Reason: SEVERE CONSITIPATION Diltiazem HCl (Cardizem Inj) 34 mg IV.PUSH BOLUS PRN PRN Reason: Inadaquate response Last Admin: 11/18/18 09:03 Dose: 34 mg Diltiazem HCl 125 mg/ Sodium (Chloride) 125 mls @ 5 mls/hr IV.CONT TITRATE PRN ; Protocol PRN Reason: Per Protocol Last Titration: 11/19/18 12:17 Dose: Infused Ipratropium [place] (Atrovent Neb) 0.5 mg NEB Q4HR NEB PRN PRN Reason: DYSPNEA Lactulose (Lactulose Liq) 30 ml PO DAILY PRN PRN Reason: SEVERE CONSITIPATION Metoprolol Tartrate (Lopressor) 25 mg PO BID [facility] Last Admin: 11/19/18 08:51 Dose: 25 mg Ondansetron HCl (Zofran Inj) 4 mg IV.PUSH Q6H PRN PRN Reason: NAUSEA OR VOMITING Sennosides (Senokot) 17.2 mg PO Q12H PRN PRN Reason: Moderate Constipation Sodium Chloride (Ns Flush) 2 ml IV.FLUSH UNSCH PRN PRN Reason: FLUSH AFTER USING IV ACCESS Sodium Chloride (Ns Flush) 2 ml IV.FLUSH BID [facility] Last Admin: 11/19/18 10:50 Dose: Not Given Sodium Chloride (Ns Flush) 2 ml IV.FLUSH PRN PRN PRN Reason: FLUSH AFTER USING IV ACCESS Physical Exam Vital signs: Vital Signs 11/18/18 15:09 11/18/18 17:30 11/18/18 20:00 Temperature Pulse Rate 100 H 68 Respiratory Rate 22 20 Blood Pressure 154/89 H 130/67 Pulse Oximetry 95 95 96 11/19/18 00:00 11/19/18 04:00 11/19/18 07:05 Temperature Pulse Rate 78 70 98 H Respiratory Rate 23 14 21 Blood Pressure 151/80 H 152/77 H 164/88 H Pulse Oximetry 96 95 98 11/19/18 08:21 11/19/18 11:50 11/19/18 13:46 Temperature 98.7 F 98.1 F Pulse Rate 80 74 76 Respiratory Rate 18 17 16 Blood Pressure 149/78 H 142/76 H 135/93 H Pulse Oximetry 98 95 Intake & Output 11/18/18 11/19/18 11/19/18 18:59 06:59 18:59 Intake Total 125 / 125 Output Total 1525 / 1525 Balance -1525 / -1525 125 / 125 Weight 97.522 kg Intake: IV 125 / 125 Cardizem Inj 125 MG In NS Inj 125 / 125 100 ML @ 5 MG/HR 5 mls/hr IV. CONT TITRATE PRN Rx#:[id number] Output: Urine 1525 / 1525 - Constitutional no acute distress - Routine HEENT Exam Head: Present: normocephalic Eye: Present: PERRL ENT: Present: mucous membranes moist - Routine Neck Exam Present: full ROM - Routine Respiratory Exam Present: CTA bilaterally - Routine Cardiovascular Exam Present: S1, S2, irregular rhythm - Routine Abdominal Exam Present: normoactive bowel sounds - Routine Extremities Exam Present: edema, full ROM, pulses intact, normal capillary refill. Absent: cyanosis, clubbing Comments: trace edema - Routine Skin Exam Present: intact - Routine Neurological Exam Present: oriented X3 - Detailed Neurological Exam: Coma Scale Eye Opening: Spontaneous Verbal Response: Oriented Motor Response: Obey commands [place] Coma Scale Total: 15 - Routine Psychiatric Exam Present: normal affect Results 11/19/18 19:42 11/19/18 07:09 Cardiac Enzymes 11/18/18 11/18/18 11/18/18 Range/Units 08:55 13:45 18:35 AST 18 (15-37) U/L Troponin I 0.09 H 0.10 H 0.10 H (0.02-0.05) ng/mL Coagulation 11/18/18 Range/Units 08:55 PT 10.7 (9.8-11.6) sec APTT 27.1 (23.4-31.7) sec CBC 11/18/18 Range/Units 08:55 WBC 6.0 (4.0-11.0) th/mm3 RBC 4.44 L (4.50-5.90) mil/mm3 Hgb 15.4 (13.0-17.0) gm/dL Hct 43.5 (39.0-51.0) % Plt Count 154 (150-450) th/mm3 Neut # (Auto) 4.2 (1.8-7.7) th/mm3 Lymph # (Auto) 1.2 (1.0-4.8) th/mm3 [place] # (Auto) 0.7 (0.0-0.9) th/mm3 Eos # (Auto) 0.0 (0.0-0.4) th/mm3 Baso # (Auto) 0.0 (0.0-0.2) th/mm3 Comprehensive Metabolic Panel 11/18/18 11/19/18 Range/Units 08:55 07:09 Sodium 144 139 (136-145) meq/L Potassium 3.9 3.6 (3.5-5.1) meq/L Chloride 108 H 101 (98-107) meq/L Carbon Dioxide 24.6 27.7 (21.0-32.0) meq/L BUN 17 15 (7-18) mg/dL Creatinine 1.15 1.28 (0.60-1.30) mg/dL Calcium 8.9 9.4 (8.5-10.1) mg/dL AST 18 (15-37) U/L ALT 25 (12-78) U/L Alkaline Phosphatase 79 (45-117) U/L Total Protein 7.2 (6.4-8.2) g/dL Albumin 3.8 (3.4-5.0) g/dL Intake and Output 11/18/18 11/19/18 11/19/18 22:59 06:59 14:59 Intake Total 125 / 125 Output Total 425 / 425 Balance -425 / -425 125 / 125 Intake: IV 125 / 125 Cardizem Inj 125 MG In NS Inj 125 / 125 100 ML @ 5 MG/HR 5 mls/hr IV. CONT TITRATE PRN Rx#:[id number] Output: Urine 425 / 425 - Imaging and Cardiology Imaging: Impressions Chest X-Ray 11/18/18 08:34 CONCLUSION: Minimal increase in congestive failure. Assessment and Plan - Assessment (1) Atrial fibrillation with RVR Code(s): I48.91 - Unspecified atrial fibrillation Status: Acute (2) Congestive heart failure Code(s): I50.9 - Heart failure, unspecified Status: Acute (3) Elevated troponin Code(s): R74.8 - Abnormal levels of other serum enzymes Status: Acute - Plan 2D echo on 11/18/17 shows an EF 50-55%, trace MR and Trace TR. Continue rate control with metoprolol. Continue anticoagulation with Eliquis. He can be cleared for discharge from a cardiology standpoint. We will follow up in our office in 3 weeks after discharge from the hospital. The patient was seen and evaluated by Dr. Tamayo who participated in care, management and decision making. - Attending Attestation Patient seen and examined. I reviewed and agree with the evaluation and plan as presented. Continue rate control and anticoagulation. DC home. F/u in our office after discharge. (2) Congestive heart failure Qualifiers: Heart failure type: unspecified Heart failure chronicity: acute on chronic Qualified Code(s): I50.9 - Heart failure, unspecified
[2018-11-19] MEDS: Metoprolol Tartrate 25 MG Tablet PO SCH ×2 (16:08→21:45)
[2018-11-19] MEDS: Acetaminophen 325 MG Tablet PO PRN (17:50)
[2018-11-19] MEDS ORDERED: dilTIAZem 30 MG Tablet PO SCH (18:00)
--- NOTE | 2018-11-19 19:37 | XR ---
EXAM DATE: 11/19/2018 7:30 PM EST AGE/SEX: 83 years / Male INDICATIONS: Fever CLINICAL DATA: This is the patient's subsequent encounter. Patient reports that signs and symptoms h ave been present for 2 days and indicates a pain score of 0/10. MEDICAL/SURGICAL HISTORY: . Chronic obstructive pulmonary disease. A-fib None. COMPARISON: [facility] – [place]ST 1V SINGLE AP, 11/18/2018. . FINDINGS: Single AP view the chest. Volume loss is again seen on the right along with bilateral lower lung zone predominant opacity. No significant interval change. No evidence of pneumothorax. Cardiac silhouette is enlarged but unchanged. CONCLUSION: No significant interval change. Persistent bilateral pulmonary opacity and right lung volume loss. Electronically signed by: Charles Post MD Board Certified Radiologist 11/19/2018 7:35 PM EST
[2018-11-19] MEDS: Azithromycin 250 MG Tablet PO SCH (19:52)
[2018-11-19 19:57] LABS: Baso % (Auto) 0.3 % (0.0-2.0); Eos % (Auto) 0.1 % (0.0-4.0); Hematocrit 42.4 % (39.0-51.0); Hemoglobin 14.5 gm/dL (13.0-17.0); Lymph # (Auto) 0.4 th/mm3 (1.0-4.8); Lymph % (Auto) 5.3 % (9.0-44.0); Mean Corpuscular HGB Conc 34.1 % (32.0-36.0); Mean Corpuscular Hemoglobin 32.9 pg (27.0-34.0); Mean Corpuscular Volume 96.3 fL (80.0-100.0); Mean Platelet Volume 7.5 fL (7.0-11.0); Mono # (Auto) 0.7 th/mm3 (0.0-0.9); Mono % (Auto) 8.9 % (0.0-8.0); Neut # (Auto) 6.5 th/mm3 (1.8-7.7); Neut % (Auto) 85.4 % (16.0-70.0); Platelet Count 141 th/mm3 (150-450); Red Cell Distribution Width 13.5 % (11.6-17.2); White Blood Count 7.6 th/mm3 (4.0-11.0)
--- NOTE | 2018-11-19 20:26 | P.PNIM ---
Subjective Interval history: Follow up for atrial fibrillation. Patient was seen in the AM and in the afternoon as well. He was doing well in the AM. He reported some nausea, vomiting and diarrhea which he attributes to diltiazem drip. However, during the day he did not have any further episodes. His heart rate remained around 80-100 range[address] After discussing with Dr. Tamayo (cardiology) I discharged patient. However, within 10 minutes of leaving patient's room, RN informed me that patient has having shaking chills. Came to evaluate patient. He is on room air, shivering. He denies any chest pain, cough, urinary symptoms. Later in the evening, he developed a fever of 101 F. I subsequently discontinued d/c home orders to perform further work up and treatments. Physical Exam Vital signs: Vital Signs 11/19/18 00:00 11/19/18 04:00 11/19/18 07:05 Temperature Pulse Rate 78 70 98 H Respiratory Rate 23 14 21 Blood Pressure 151/80 H 152/77 H 164/88 H Pulse Oximetry 96 95 98 11/19/18 08:21 11/19/18 11:50 11/19/18 13:46 Temperature 98.7 F 98.1 F Pulse Rate 80 74 76 Respiratory Rate 18 17 16 Blood Pressure 149/78 H 142/76 H 135/93 H Pulse Oximetry 98 95 11/19/18 15:00 11/19/18 16:00 11/19/18 16:21 Temperature 97.5 F L Pulse Rate 112 H 79 86 Respiratory Rate 18 Blood Pressure 144/76 H Pulse Oximetry 96 11/19/18 17:03 11/19/18 17:56 11/19/18 20:00 Temperature 101.5 F H 99.2 F Pulse Rate 100 H 113 H Respiratory Rate 19 Blood Pressure 156/78 H Pulse Oximetry 93 L Intake & Output 11/19/18 11/19/18 11/20/18 06:59 18:59 06:59 Intake Total 605 / 605 Output Total 300 / 300 Balance 305 / 305 Intake: IV 125 / 125 Cardizem Inj 125 MG In NS Inj 125 / 125 100 ML @ 5 MG/HR 5 mls/hr IV. CONT TITRATE PRN Rx#:[id number] Oral 480 / 480 Output: Urine 300 / 300 Other: Date of Last Bowel Movement 11/19/18 Narrative: GENERAL: Alert, NAD. In the afternoon exam, patient was visibly shivering. SKIN: Warm and dry. HEAD: Normocephalic. EYES: No scleral icterus. No injection or drainage. NECK: Supple, trachea midline. No JVD or lymphadenopathy. CARDIOVASCULAR: Irreg Irreg without murmurs, gallops, or rubs. RESPIRATORY: Breath sounds equal bilaterally. No accessory muscle use. GASTROINTESTINAL: Abdomen soft, non-tender, nondistended. MUSCULOSKELETAL: No cyanosis, or edema. BACK: Nontender without obvious deformity. No CVA tenderness. Results Labs CBC & Chem 7: 11/19/18 19:42 11/19/18 07:09 Imaging Imaging: Impressions Chest X-Ray 11/19/18 00:00 CONCLUSION: No significant interval change. Persistent bilateral pulmonary opacity and right lung volume loss. Assessment and Plan (1) Atrial fibrillation with RVR: Code(s): I48.91 - Unspecified atrial fibrillation Status: Acute (2) Congestive heart failure: Code(s): I50.9 - Heart failure, unspecified Status: Acute (3) Elevated troponin: Code(s): R74.8 - Abnormal levels of other serum enzymes Status: Acute Plan Mr. Long is a pleasant 83-year-old male with a history of atrial fibrillation, COPD who presents to the emergency department due to shortness of breath. His heart rate at home was in the 190s and irregular. In the emergency department he was found to have atrial fibrillation with RVR. Patient was on digoxin as well as aspirin at home. Atrial fibrillation with rapid ventricular response -Diltiazem drip discontinued. Currently on Metoprolol - will increase to 25mg TID -Appreciate cardiology input. Patient is also on Apixaban 5mg BID. [id number] score 2 (Age). -TSH and Echo unremarkable. Fever/chills -CXR yesterday shows mild vascular congestion -Repeat CXR was read as stable. However, it does appear to have bilateral opacity. -Will obtain blood cultures, CBC, lactic acid, procalcitonin, BNP. -Empirically start Ceftriaxone 2g and Azithromycin 500mg Qday -If no improvement occurs, we can consider CT chest. COPD No acute concerns. Supplemental oxygen to keep O2 saturation around 90%. Continue ipratropium nebulizer treatments. Elevated troponin -Likely tachycardia induced. No chest pain. -Trops are 0.09, 0.10 and 0.10. No further work up needed at this time. Full code. Apixaban. Progress Note: Quality VTE Deep Vein Thrombosis/Pulmonary Embolism Present on Admission: No _ (1) Congestive heart failure Qualifiers: Heart failure chronicity: acute on chronic Heart failure type: unspecified Qualified Code(s): I50.9 - Heart failure, unspecified
[2018-11-19 23:07] LABS: Bilirubin,Urine Negative (Negative); Clarity,Urine Hazy (Clear); Color,Urine Yellow (Yellw/Straw); Glucose,Urine (UA) Negative (Negative); Leukocyte Esterase,Urine Negative (Negative); Mucus,Urine Few /lpf (Occasional); Nitrite,Urine Negative (Negative); Specific Gravity,Urine 1.012 (1.002-1.035); Squamous Epithelial Cell,Urine <1 /hpf (0-5)
[2018-11-20] MEDS: Acetaminophen 325 MG Tablet PO PRN (04:16)
[2018-11-20] MEDS: Metoprolol Tartrate 25 MG Tablet PO SCH (05:35)
[2018-11-20 07:07] LABS: Calcium 8.6 mg/dL (8.5-10.1); Potassium 3.4 meq/L (3.5-5.1)
[2018-11-20] MEDS: Azithromycin 250 MG Tablet PO SCH (08:56)
--- NOTE | 2018-11-20 11:52 | P.PNIM ---
Subjective Interval history: Patient says he is feeling right. Denies any chest pain or shortness of breath. Says he feels like going home. Physical Exam Vital signs: Vital Signs 11/19/18 11:50 11/19/18 13:46 11/19/18 15:00 Temperature 98.1 F Pulse Rate 74 76 112 H Respiratory Rate 17 16 Blood Pressure 142/76 H 135/93 H Pulse Oximetry 98 95 11/19/18 16:00 11/19/18 16:21 11/19/18 17:03 Temperature 97.5 F L Pulse Rate 79 86 100 H Respiratory Rate 18 Blood Pressure 144/76 H Pulse Oximetry 96 11/19/18 17:56 11/19/18 19:00 11/19/18 20:00 Temperature 101.5 F H 99.2 F Pulse Rate 112 H 102 H Respiratory Rate 19 Blood Pressure 156/78 H Pulse Oximetry 93 L 11/19/18 21:00 11/19/18 22:00 11/19/18 23:00 Temperature Pulse Rate 106 H 120 H 117 H Respiratory Rate Blood Pressure Pulse Oximetry 11/20/18 00:00 11/20/18 01:00 11/20/18 02:00 Temperature 98.1 F Pulse Rate 108 H 90 76 Respiratory Rate 18 Blood Pressure 123/76 Pulse Oximetry 94 L 11/20/18 03:00 11/20/18 03:49 11/20/18 04:00 Temperature 100.4 F H Pulse Rate 95 H 107 H 120 H Respiratory Rate 18 Blood Pressure 126/93 H Pulse Oximetry 93 L 93 L 11/20/18 05:00 11/20/18 06:00 11/20/18 07:00 Temperature Pulse Rate 97 H 114 H 98 H Respiratory Rate Blood Pressure Pulse Oximetry 11/20/18 08:00 11/20/18 09:00 Temperature 98.1 F Pulse Rate 92 H 130 H Respiratory Rate 18 Blood Pressure 131/95 H Pulse Oximetry 97 Intake & Output 11/19/18 11/20/18 11/20/18 18:59 06:59 18:59 Intake Total 605 / 605 340 / 340 Output Total 300 / 300 500 / 500 Balance 305 / 305 -160 / -160 Weight 94.1 kg Intake: IV 125 / 125 100 / 100 Cardizem Inj 125 MG In NS Inj 125 / 125 100 ML @ 5 MG/HR 5 mls/hr IV. CONT TITRATE PRN Rx#:[id number] Rocephin Inj 2,000 MG In NS Inj 100 / 100 100 ML @ 200 mls/hr IV.SIG Q24H SUNDAR Rx#:[id number] Oral 480 / 480 240 / 240 Output: Urine 300 / 300 500 / 500 Other: # Voids 1 Date of Last Bowel Movement 11/20/18 # Bowel Movements 1 Narrative: GENERAL: Alert, NAD. SKIN: Warm and dry. HEAD: Normocephalic. EYES: No scleral icterus. No injection or drainage. NECK: Supple, trachea midline. No JVD or lymphadenopathy. CARDIOVASCULAR: Irreg Irreg without murmurs, gallops, or rubs. Tachycardic. RESPIRATORY: Breath sounds equal bilaterally. No accessory muscle use. GASTROINTESTINAL: Abdomen soft, non-tender, nondistended. MUSCULOSKELETAL: No cyanosis, or edema. BACK: Nontender without obvious deformity. No CVA tenderness. Results Labs CBC & Chem 7: 11/19/18 19:42 11/20/18 05:49 Labs: Microbiology 11/19/18 19:46 Blood - Peripheral Aerobic Blood Culture - Preliminary No growth in 1 day 11/19/18 19:46 Blood - Peripheral Anaerobic Blood Culture - Preliminary No growth in 1 day 11/19/18 19:33 Blood - Peripheral Aerobic Blood Culture - Preliminary No growth in 1 day 11/19/18 19:33 Blood - Peripheral Anaerobic Blood Culture - Preliminary No growth in 1 day Imaging Imaging: Impressions Chest X-Ray 11/19/18 00:00 CONCLUSION: No significant interval change. Persistent bilateral pulmonary opacity and right lung volume loss. Assessment and Plan (1) Atrial fibrillation with RVR: Code(s): I48.91 - Unspecified atrial fibrillation Status: Acute (2) Congestive heart failure: Code(s): I50.9 - Heart failure, unspecified Status: Acute (3) Elevated troponin: Code(s): R74.8 - Abnormal levels of other serum enzymes Status: Acute Plan Mr. Long is a pleasant 83-year-old male with a history of atrial fibrillation, COPD who presents to the emergency department due to shortness of breath. His heart rate at home was in the 190s and irregular. In the emergency department he was found to have atrial fibrillation with RVR. Patient was on digoxin as well as aspirin at home. Atrial fibrillation with rapid ventricular response -Diltiazem drip discontinued. Currently on Metoprolol - will increase to 25mg TID -Appreciate cardiology input. Patient is also on Apixaban 5mg BID. [id number] score 2 (Age). -TSH and Echo unremarkable. = 11/20. Heart rate still in the 130s. Will increase metoprolol to 50 mg by mouth 3 times daily. Fever/chills Suspected UTI -CXR yesterday shows mild vascular congestion -Repeat CXR was read as stable. However, it does appear to have bilateral opacity. -Will obtain blood cultures, CBC, lactic acid, procalcitonin, BNP. -Empirically start Ceftriaxone 2g and Azithromycin 500mg Qday -If no improvement occurs, we can consider CT chest. = Discontinue Tylenol. Monitor for fevers. Follow-up urine culture results. Blood culture results negative at this time. COPD No acute concerns. Supplemental oxygen to keep O2 saturation around 90%. Continue ipratropium nebulizer treatments. Elevated troponin -Likely tachycardia induced. No chest pain. -Trops are 0.09, 0.10 and 0.10. No further work up needed at this time. Full code. Apixaban. Discharge Planning: Discharge when patient is afebrile for 24 hours, and we have results from urine culture. Heart rate will also need to be controlled Progress Note: Quality VTE Deep Vein Thrombosis/Pulmonary Embolism Present on Admission: No _ (1) Congestive heart failure Qualifiers: Heart failure chronicity: acute on chronic Heart failure type: unspecified Qualified Code(s): I50.9 - Heart failure, unspecified
--- NOTE | 2018-11-20 12:40 | P.PNCA ---
Subjective Interval history: Patient is sitting up in the chair at this time. He denies any CP, pressure, palpitations, dizziness, edema or SOB. Medications and Allergies Allergies Allergy/AdvReac Type Severity Reaction Status Date / Time No Known Allergies Allergy Verified 11/19/18 06:49 Home Medications Medication Instructions Recorded Confirmed Type aspirin [Aspir-81] 81 mg PO DAILY 10/23/18 11/18/18 History digoxin 0.125 mg PO DAILY 10/23/18 11/18/18 History Active Medications: Active Medications Al Hydroxide/Mg Hydroxide (Milk Of Magnesia Liq) 30 ml PO Q12H PRN PRN Reason: Mild Constipation Apixaban (Eliquis) 5 mg PO BID [facility] Last Admin: 11/20/18 08:56 Dose: 5 mg Azithromycin (Zithromax) 500 mg PO DAILY [facility] Last Admin: 11/20/18 08:56 Dose: 500 mg Bisacodyl (Dulcolax Supp) 10 mg RECTAL DAILY PRN PRN Reason: SEVERE CONSITIPATION Diltiazem HCl 125 mg/ Sodium (Chloride) 125 mls @ 5 mls/hr IV.CONT TITRATE PRN ; Protocol PRN Reason: Per Protocol Last Titration: 11/19/18 12:17 Dose: Infused Ceftriaxone Sodium 2,000 mg/ (Sodium Chloride) 100 mls @ 200 mls/hr IV.SIG Q24H [facility] Last Infusion: 11/19/18 22:33 Dose: Infused Ipratropium [place] (Atrovent Neb) 0.5 mg NEB Q4HR NEB PRN PRN Reason: DYSPNEA Lactulose (Lactulose Liq) 30 ml PO DAILY PRN PRN Reason: SEVERE CONSITIPATION Metoprolol Tartrate (Lopressor) 50 mg PO Q8HR [facility] Ondansetron HCl (Zofran Inj) 4 mg IV.PUSH Q6H PRN PRN Reason: NAUSEA OR VOMITING Sennosides (Senokot) 17.2 mg PO Q12H PRN PRN Reason: Moderate Constipation Sodium Chloride (Ns Flush) 2 ml IV.FLUSH BID [facility] Last Admin: 11/20/18 08:56 Dose: 2 ml Sodium Chloride (Ns Flush) 2 ml IV.FLUSH PRN PRN PRN Reason: FLUSH AFTER USING IV ACCESS Physical Exam Vital signs: Vital Signs 11/19/18 13:46 11/19/18 15:00 11/19/18 16:00 Temperature 98.1 F 97.5 F L Pulse Rate 76 112 H 79 Respiratory Rate 16 18 Blood Pressure 135/93 H 144/76 H Pulse Oximetry 95 96 11/19/18 16:21 11/19/18 17:03 11/19/18 17:56 Temperature 101.5 F H Pulse Rate 86 100 H Respiratory Rate Blood Pressure Pulse Oximetry 11/19/18 19:00 11/19/18 20:00 11/19/18 21:00 Temperature 99.2 F Pulse Rate 112 H 102 H 106 H Respiratory Rate 19 Blood Pressure 156/78 H Pulse Oximetry 93 L 11/19/18 22:00 11/19/18 23:00 11/20/18 00:00 Temperature 98.1 F Pulse Rate 120 H 117 H 108 H Respiratory Rate 18 Blood Pressure 123/76 Pulse Oximetry 94 L 11/20/18 01:00 11/20/18 02:00 11/20/18 03:00 Temperature Pulse Rate 90 76 95 H Respiratory Rate Blood Pressure Pulse Oximetry 11/20/18 03:49 11/20/18 04:00 11/20/18 05:00 Temperature 100.4 F H Pulse Rate 107 H 120 H 97 H Respiratory Rate 18 Blood Pressure 126/93 H Pulse Oximetry 93 L 93 L 11/20/18 06:00 11/20/18 07:00 11/20/18 08:00 Temperature 98.1 F Pulse Rate 114 H 98 H 92 H Respiratory Rate 18 Blood Pressure 131/95 H Pulse Oximetry 97 11/20/18 09:00 11/20/18 10:00 11/20/18 11:00 Temperature Pulse Rate 130 H 96 H 102 H Respiratory Rate Blood Pressure Pulse Oximetry 11/20/18 12:00 Temperature 99.6 F Pulse Rate 115 H Respiratory Rate 18 Blood Pressure 145/83 H Pulse Oximetry 95 Intake & Output 11/19/18 11/20/18 11/20/18 18:59 06:59 18:59 Intake Total 605 / 605 340 / 340 Output Total 300 / 300 500 / 500 Balance 305 / 305 -160 / -160 Weight 94.1 kg Intake: IV 125 / 125 100 / 100 Cardizem Inj 125 MG In NS Inj 125 / 125 100 ML @ 5 MG/HR 5 mls/hr IV. CONT TITRATE PRN Rx#:[id number] Rocephin Inj 2,000 MG In NS Inj 100 / 100 100 ML @ 200 mls/hr IV.SIG Q24H [facility] Rx#:[id number] Oral 480 / 480 240 / 240 Output: Urine 300 / 300 500 / 500 Other: # Voids 1 Date of Last Bowel Movement 11/20/18 # Bowel Movements 1 - Constitutional no acute distress - Routine HEENT Exam Head: Present: normocephalic Eye: Present: PERRL ENT: Present: mucous membranes moist - Routine Neck Exam Present: full ROM - Routine Respiratory Exam Present: CTA bilaterally - Routine Cardiovascular Exam Present: S1, S2, tachycardia, irregular rhythm - Routine Abdominal Exam Present: normoactive bowel sounds - Routine Extremities Exam Present: full ROM, pulses intact, normal capillary refill. Absent: cyanosis, clubbing, edema - Routine Skin Exam Present: intact - Routine Neurological Exam Present: oriented X3 - Detailed Neurological Exam: Coma Scale Eye Opening: Spontaneous Verbal Response: Oriented Motor Response: Obey commands [place] Coma Scale Total: 15 - Routine Psychiatric Exam Present: normal affect Results 11/19/18 19:42 11/20/18 05:49 Cardiac Enzymes 11/18/18 11/18/18 11/19/18 Range/Units 13:45 18:35 19:42 Troponin I 0.10 H 0.10 H (0.02-0.05) ng/mL B-Natriuretic Peptide 178 H (0-100) pg/mL Coagulation 11/19/18 Range/Units 19:42 B-Natriuretic Peptide 178 H (0-100) pg/mL CBC 11/19/18 Range/Units 19:42 WBC 7.6 (4.0-11.0) th/mm3 RBC 4.40 L (4.50-5.90) mil/mm3 Hgb 14.5 (13.0-17.0) gm/dL Hct 42.4 (39.0-51.0) % Plt Count 141 L (150-450) th/mm3 Neut # (Auto) 6.5 (1.8-7.7) th/mm3 Lymph # (Auto) 0.4 L (1.0-4.8) th/mm3 [place] # (Auto) 0.7 (0.0-0.9) th/mm3 Eos # (Auto) 0.0 (0.0-0.4) th/mm3 Baso # (Auto) 0.0 (0.0-0.2) th/mm3 Comprehensive Metabolic Panel 11/19/18 11/20/18 Range/Units 07:09 05:49 Sodium 139 139 (136-145) meq/L Potassium 3.6 3.4 L (3.5-5.1) meq/L Chloride 101 104 (98-107) meq/L Carbon Dioxide 27.7 28.0 (21.0-32.0) meq/L BUN 15 15 (7-18) mg/dL Creatinine 1.28 1.12 (0.60-1.30) mg/dL Calcium 9.4 8.6 D (8.5-10.1) mg/dL Intake and Output 11/19/18 11/20/18 11/20/18 22:59 06:59 14:59 Intake Total 580 / 580 240 / 240 Output Total 300 / 300 500 / 500 Balance 280 / 280 -260 / -260 Intake: IV 100 / 100 Rocephin Inj 2,000 MG In NS Inj 100 / 100 100 ML @ 200 mls/hr IV.SIG Q24H [facility] Rx#:[id number] Oral 480 / 480 240 / 240 Output: Urine 300 / 300 500 / 500 Other: # Voids 1 Date of Last Bowel Movement 11/19/18 11/20/18 # Bowel Movements 1 Weight 94.1 kg - Imaging and Cardiology Imaging: Impressions Chest X-Ray 11/19/18 00:00 CONCLUSION: No significant interval change. Persistent bilateral pulmonary opacity and right lung volume loss. Assessment and Plan - Assessment (1) Atrial fibrillation with RVR Code(s): I48.91 - Unspecified atrial fibrillation Status: Acute (2) Congestive heart failure Code(s): I50.9 - Heart failure, unspecified Status: Acute (3) Elevated troponin Code(s): R74.8 - Abnormal levels of other serum enzymes Status: Acute - Plan Patient remains in atrial fibrillation, continue rate control with metoprolol. We will continue Eliquis for anticoagulation. He can be cleared for discharge from a cardiology standpoint. Instructed the patient on the importance of taking the Eliquis and metoprolol. He verbalized understanding. We will follow up in our office in 3 weeks after discharge from the hospital. The patient was seen and evaluated by Dr. Tamayo who participated in care, management and decision making. - Attending Attestation Patient seen and examined. I reviewed and agree with the evaluation and plan as presented. Continue rate control and anticoagulation. OK to discharge from cardiac standpoint. Will schedule outpt f/u. (2) Congestive heart failure Qualifiers: Heart failure type: unspecified Heart failure chronicity: acute on chronic Qualified Code(s): I50.9 - Heart failure, unspecified
[2018-11-20] MEDS: Metoprolol Tartrate 50 MG Tablet PO SCH ×2 (12:59→21:06)
[2018-11-21] MEDS: Metoprolol Tartrate 50 MG Tablet PO SCH (05:12)
[2018-11-21] MEDS: Azithromycin 250 MG Tablet PO SCH (08:04)
[2018-11-21 08:14] VITALS: BP 132/73; RESP 16; TEMP 98.9; O2SAT 95
[2018-11-21 08:49] LABS: Baso % (Auto) 0.5 % (0.0-2.0); Eos % (Auto) 0.3 % (0.0-4.0); Hematocrit 43.6 % (39.0-51.0); Lymph # (Auto) 0.8 th/mm3 (1.0-4.8); Lymph % (Auto) 17.8 % (9.0-44.0); Mean Corpuscular HGB Conc 34.4 % (32.0-36.0); Mean Corpuscular Hemoglobin 32.6 pg (27.0-34.0); Mean Corpuscular Volume 94.7 fL (80.0-100.0); Mono % (Auto) 22.2 % (0.0-8.0); Neut # (Auto) 2.7 th/mm3 (1.8-7.7); Neut % (Auto) 59.2 % (16.0-70.0); Platelet Count 119 th/mm3 (150-450); Red Cell Distribution Width 13.2 % (11.6-17.2); White Blood Count 4.6 th/mm3 (4.0-11.0)
[2018-11-21 09:07] LABS: Carbon Dioxide 24.6 meq/L (21.0-32.0); Magnesium 1.8 mg/dL (1.5-2.5); Phosphorus 2.9 mg/dL (2.5-4.9); Potassium 3.4 meq/L (3.5-5.1); Total Protein 6.4 g/dL (6.4-8.2)
--- NOTE | 2018-11-21 10:30 | P.DS ---
DS: Providers Date of admission: 11/18/18 21:27 Primary care physician: Vik Lincoln Consults: 11/18/18 15:41 Consult to Cardiology Routine Consulting Provider: Marky Tamayo Does the patient have a Crane Crew Supervisor who follows them?: No Preferred Target Protection Specialist:: Fraud Prevention Analyst Physician Reason for Consultation: Afib with RVR, currently on Diltiazem drip. Started BB. Patient was on Diltiazem per his PCP. He was also on Aspirin 81mg. [id number] score 2 (Age). Will get TSH, Echo. Thank you. Notified:: Office Spoke with:: oksana Date Notified:: 11/18/18 Time Notified:: 15:46 Ordering Provider: MANE De La Rosa History from admission: Mr. Long is a pleasant 83-year-old male with a history of atrial fibrillation, COPD who presents to the emergency department on 11/18/2018 due to shortness of breath. Patient woke up around 3 AM with shortness of breath. He waited and around 7 AM he again began shortness of breath. He did not have any chest pain, nausea or vomiting or diaphoresis. He checked his vitals and his heart rate was in the 190s. He subsequently called EMS. In the ED his EKG showed atrial fibrillation with RVR in the right around 140s. Patient was given Cardizem IV push as well as Cardizem drip. Patient does not follow-up with belt brander. His PCP started digoxin for atrial fibrillation several years ago. He takes aspirin for prophylaxis. He denies any cough, abdominal pain, fever or chills. He denies any changes in bowel or bladder habits. Past medical history: COPD, atrial fibrillation Past surgical history: Bilateral inguinal hernia repair. Social history: Patient does not use tobacco or illicit drugs. However he consumes vodka, wine and scotch every day and fixed amounts. Family history: No family history of Alzheimer's dementia or Parkinson's disease. DS: Diagnosis Discharge Diagnosis (1) Atrial fibrillation with RVR: Status: Acute (2) Congestive heart failure: Status: Acute (3) Elevated troponin: Status: Acute DS: Summary Mr. Long is a pleasant 83-year-old male with a history of atrial fibrillation, COPD who presents to the emergency department due to shortness of breath. His heart rate at home was in the 190s and irregular. In the emergency department he was found to have atrial fibrillation with RVR. Patient was on digoxin as well as aspirin at home. Atrial fibrillation with rapid ventricular response -Diltiazem drip discontinued. Continue metoprolol. -Appreciate cardiology input. Patient is also on Apixaban 5mg BID. [id number] score 2 (Age). -TSH and Echo unremarkable. = 11/20. Heart rate still in the 130s. Will increase metoprolol to 50 mg by mouth 3 times daily. Fever/chills Suspected UTI -CXR shows mild vascular congestion -Repeat CXR was read as stable. However, it does appear to have bilateral opacity. -Will obtain blood cultures, CBC, lactic acid, procalcitonin, BNP. -Empirically start Ceftriaxone 2g and Azithromycin 500mg Qday. Urine cultures are negative and blood cultures are also negative to date. Discontinue antibiotics. -If no improvement occurs, we can consider CT chest. = Discontinue Tylenol. Monitor for fevers. Follow-up urine culture results. Blood culture results negative at this time. COPD No acute concerns. Supplemental oxygen to keep O2 saturation around 90%. Continue ipratropium nebulizer treatments. Elevated troponin -Likely tachycardia induced. No chest pain. -Trops are 0.09, 0.10 and 0.10. No further work up needed at this time. Cleared by cardiology for discharge. Patient improved, discharged home in stable condition to follow-up with PCP and consultants as outpatient. Time Spent with Patient Total time spent providing and/or coordinating discharge services: > 30 min Quality: VTE Deep Vein Thrombosis/Pulmonary Embolism Present on Admission: No Exam Narrative Exam Narrative: GENERAL: Pleasant 83-year-old male, well-nourished well- developed appears in not acute distress. CARDIOVASCULAR: Irregular rate and rhythm. RESPIRATORY: No accessory muscle use. Clear to auscultation. Breath sounds equal bilaterally. GASTROINTESTINAL: Abdomen soft, non-tender, nondistended. Hepatic and splenic margins not palpable. MUSCULOSKELETAL: Extremities without clubbing, cyanosis, or edema. No obvious deformities. NEUROLOGICAL: Awake and alert. No obvious cranial nerve deficits. Motor grossly within normal limits. Five out of 5 muscle strength in the arms and legs. Normal speech. PSYCHIATRIC: Appropriate mood and affect; insight and judgment normal. Results Labs on day of discharge: Labs from last 24 hours 11/21/18 11/21/18 07:06 07:06 WBC 4.6 RBC 4.60 Hgb 15.0 Hct 43.6 MCV 94.7 MCH 32.6 MCHC 34.4 RDW 13.2 Plt Count 119 L MPV 8.0 Neut % (Auto) 59.2 Lymph % (Auto) 17.8 [place] % (Auto) 22.2 H Eos % (Auto) 0.3 Baso % (Auto) 0.5 Neut # (Auto) 2.7 Lymph # (Auto) 0.8 L [place] # (Auto) 1.0 H Eos # (Auto) 0.0 Baso # (Auto) 0.0 WBC Differential . Differential Comment Auto diff final Hematology Comments Sodium 143 Potassium 3.4 L Chloride 107 Carbon Dioxide 24.6 Anion Gap 11 BUN 13 Creatinine 1.18 Estimated GFR 59 L Random Glucose 87 Calcium 8.0 L Phosphorus 2.9 Magnesium 1.8 Total Bilirubin 0.9 Direct Bilirubin 0.3 H Indirect Bilirubin 0.6 AST 16 ALT 18 Alkaline Phosphatase 60 Total Protein 6.4 D Albumin 3.0 L Preliminary micro results at discharge 11/19/18 19:46 Aerobic Blood Culture - Preliminary Blood - Peripheral No growth in 1 day Anaerobic Blood Culture - Preliminary No growth in 1 day 11/19/18 19:33 Aerobic Blood Culture - Preliminary Blood - Peripheral No growth in 1 day Anaerobic Blood Culture - Preliminary No growth in 1 day Impressions ITS Impressions Chest X-Ray 11/19/18 00:00 CONCLUSION: No significant interval change. Persistent bilateral pulmonary opacity and right lung volume loss. Discharge Plan Discharge Disposition Patient Disposition: Discharge Home Discharge Condition Condition: Good Discharge Order Discharge Orders: Discharge Order (Routine); Ordered 11/21/18 Ordered By: Comfort Trent Discharge Details Anticipated Discharge Date: 11/19/18 Discharge Comment: One metoprolol rx is for first month. [facility] Physicians Team Primary Care Provider: Vik Lincoln Attending Provider: Comfort Trent Other Providers: Marky Tamayo Rxs /Orders / Referrals /Forms Prescriptions: New apixaban [Eliquis] 5 mg Tablet 5 mg PO BID Qty: 60 RF: 11 metoprolol tartrate 25 mg tablet 25 mg PO BID Qty: 180 RF: 11 metoprolol tartrate 25 mg tablet 25 mg PO Q8HR Qty: 90 RF: 0 Discontinued digoxin 125 mcg Tablet 0.125 mg PO DAILY RF: 0 aspirin [Aspir-81] 81 mg Tablet,Delayed Release (Dr/Ec) 81 mg PO DAILY RF: 0 Referrals: Vik Lincoln MD [Primary Care Provider] - See Instructions Discharge Instructions Patient Printed Instructions: Metoprolol (By mouth), Apixaban (By mouth), A- fib (Atrial Fibrillation) (DC), Heart Healthy Diet (DC) Status ED Status: Left Department Discharge Information Discharge Date/Time: 11/21/18 12:15
[2018-11-21 10:32] VITALS: PULSE 86
--- NOTE | 2018-11-21 14:07 | P.PNCA ---
Subjective Interval history: No CP or SOB, feels much better Medications and Allergies Allergies Allergy/AdvReac Type Severity Reaction Status Date / Time No Known Allergies Allergy Verified 11/19/18 06:49 Physical Exam Vital signs: Vital Signs 11/20/18 15:00 11/20/18 16:00 11/20/18 17:00 Temperature 99.5 F Pulse Rate 110 H 104 H 100 H Respiratory Rate 18 Blood Pressure 147/95 H Pulse Oximetry 95 11/20/18 18:00 11/20/18 19:00 11/20/18 20:00 Temperature 98.6 F Pulse Rate 118 H 101 H 103 H Respiratory Rate 20 Blood Pressure 138/88 Pulse Oximetry 96 11/20/18 21:00 11/20/18 22:00 11/20/18 23:00 Temperature Pulse Rate 100 H 101 H 102 H Respiratory Rate Blood Pressure Pulse Oximetry 11/21/18 00:00 11/21/18 01:00 11/21/18 02:00 Temperature 99.5 F Pulse Rate 101 H 100 H 96 H Respiratory Rate 18 Blood Pressure 141/89 H Pulse Oximetry 95 11/21/18 03:00 11/21/18 04:00 11/21/18 05:00 Temperature 99 F Pulse Rate 90 89 92 H Respiratory Rate 18 Blood Pressure 131/82 Pulse Oximetry 96 11/21/18 06:00 11/21/18 07:00 11/21/18 08:00 Temperature 98.9 F Pulse Rate 92 H 75 110 H Respiratory Rate 16 Blood Pressure 132/73 Pulse Oximetry 95 11/21/18 09:00 11/21/18 10:00 Temperature Pulse Rate 88 86 Respiratory Rate Blood Pressure Pulse Oximetry Intake & Output 11/20/18 11/21/18 11/21/18 18:59 06:59 18:59 Intake Total 240 / 240 340 / 340 Output Total 700 / 700 Balance 240 / 240 -360 / -360 Weight 207 lb 3.752 oz Intake: IV 100 / 100 Rocephin Inj 2,000 MG In NS Inj 100 / 100 100 ML @ 200 mls/hr IV.SIG Q24H SUNDAR Rx#:[id number] Oral 240 / 240 240 / 240 Output: Urine 700 / 700 Other: # Bowel Movements 1 - Constitutional no acute distress - Routine Respiratory Exam Present: CTA bilaterally - Routine Cardiovascular Exam Present: irregularly irregular - Routine Abdominal Exam Present: soft - Routine Extremities Exam Absent: edema - Detailed Neurological Exam: Coma Scale Verbal Response: Oriented - Routine Psychiatric Exam Present: normal affect, normal thought process Results 11/21/18 07:06 11/21/18 07:06 Cardiac Enzymes 11/19/18 11/21/18 Range/Units 19:42 07:06 AST 16 (15-37) U/L B-Natriuretic Peptide 178 H (0-100) pg/mL Coagulation 11/19/18 Range/Units 19:42 B-Natriuretic Peptide 178 H (0-100) pg/mL CBC 11/19/18 11/21/18 Range/Units 19:42 07:06 WBC 7.6 4.6 (4.0-11.0) th/mm3 RBC 4.40 L 4.60 (4.50-5.90) mil/mm3 Hgb 14.5 15.0 (13.0-17.0) gm/dL Hct 42.4 43.6 (39.0-51.0) % Plt Count 141 L 119 L (150-450) th/mm3 Neut # (Auto) 6.5 2.7 (1.8-7.7) th/mm3 Lymph # (Auto) 0.4 L 0.8 L (1.0-4.8) th/mm3 [place] # (Auto) 0.7 1.0 H (0.0-0.9) th/mm3 Eos # (Auto) 0.0 0.0 (0.0-0.4) th/mm3 Baso # (Auto) 0.0 0.0 (0.0-0.2) th/mm3 Comprehensive Metabolic Panel 11/20/18 11/21/18 Range/Units 05:49 07:06 Sodium 139 143 (136-145) meq/L Potassium 3.4 L 3.4 L (3.5-5.1) meq/L Chloride 104 107 (98-107) meq/L Carbon Dioxide 28.0 24.6 (21.0-32.0) meq/L BUN 15 13 (7-18) mg/dL Creatinine 1.12 1.18 (0.60-1.30) mg/dL Calcium 8.6 D 8.0 L (8.5-10.1) mg/dL Direct Bilirubin 0.3 H (0.0-0.2) mg/dL Indirect Bilirubin 0.6 (0.0-0.8) mg/dL AST 16 (15-37) U/L ALT 18 (12-78) U/L Alkaline Phosphatase 60 (45-117) U/L Total Protein 6.4 D (6.4-8.2) g/dL Albumin 3.0 L (3.4-5.0) g/dL Intake and Output 11/20/18 11/21/18 11/21/18 22:59 06:59 14:59 Intake Total 340 / 340 240 / 240 Output Total 700 / 700 Balance 340 / 340 -460 / -460 Intake: IV 100 / 100 Rocephin Inj 2,000 MG In NS Inj 100 / 100 100 ML @ 200 mls/hr IV.SIG Q24H SUNDAR Rx#:[id number] Oral 240 / 240 240 / 240 Output: Urine 700 / 700 Other: # Bowel Movements 1 Weight 207 lb 3.752 oz - Imaging and Cardiology Imaging: Impressions Chest X-Ray 11/19/18 00:00 CONCLUSION: No significant interval change. Persistent bilateral pulmonary opacity and right lung volume loss. Assessment and Plan - Assessment (1) Atrial fibrillation with RVR Code(s): I48.91 - Unspecified atrial fibrillation Status: Acute (2) Congestive heart failure Code(s): I50.9 - Heart failure, unspecified Status: Acute (3) Elevated troponin Code(s): R74.8 - Abnormal levels of other serum enzymes Status: Acute - Plan Continue rate control and anticoagulation. No new cardiac issues. He can be cleared for discharge from a cardiology standpoint. We will follow up in our office in 3 weeks after discharge from the hospital. (2) Congestive heart failure Qualifiers: Heart failure type: unspecified Heart failure chronicity: acute on chronic Qualified Code(s): I50.9 - Heart failure, unspecified
--- NOTE | 2018-11-29 15:45 | PQ ---
Physician Query Response Document PATIENT: Tavo Long : 1935 ADMIT DATE: 11/18/2018 9:27 PM DISCH DATE: 11/21/2018 12:15 PM RESPONDING PROVIDER #: MCOSMA QUERY TEXT: CHF Acuity and Type Congestive Heart Failure is documented in the Medical Record. Please document the type and acuity (in cludes probable or suspected) Such as: Type: -- Systolic -- Diastolic -- Combined -- Other, please specify Acuity: -- Acute -- Chronic -- Acute on chronic -- Other, please specify Also please document the underlying cause of the CHF (includes probable or suspected) Your prompt response is appreciated, please do not hesitate to contact the CDI/Coding Hotline with an y questions, comments and/or concerns you may have at ext. [phone] The patient's Clinical Indicators include: CONGESTIVE HEART FAILURE DOCUMENTED FROM ED ALL THE WAY THROUGH DISCHARGE SUMMARY ECHO 11/18: ef 50-55%, nORMAL LEFT VENTRICULAR SIZE, BNP 11/19: 178 CHEST X-RAY 11/18: FINDINGS: The heart is enlarged. Moderate interstitial edema is present. Scattered pleural calcifications with parenchymal changes are noted stable in the interval. There is no pneumothorax. There is no significant pleural effusion. Degenerative changes about both shoulders CONCLUSION: Minimal increase in congestive failure. FUROSOMIDE 40MG IV PUSH 11/18, 20MG IV PUSH 11/19 NO EDEMA DOCUMENTED Query created by: Dalia Kamara on 11/25/2018 11:17 AM RESPONSE TEXT: Patient with acute on chronic CHF with presetrved EF, patient BNP was elevated at 178 , received lasi x with improvement . Also CHF exacerbated by ongoing Afib with RVR. Electronically signed by: Comfort Trent MD 11/29/2018 3:41 PM
== END 2018-11-21 12:15 | disposition home or self-care (01) | DRG 310 ==
LOC: NEPE 08:16 → NEDA 08:16 → NEDH 22:02 → HCIS 11-19 13:26
PROVIDERS: ADMIT Hospitalist; ATTEND Hospitalist
DX: M54.32 Sciatica, left side; R74.8 Abnormal levels of other serum enzymes; R50.9 Fever, unspecified; J44.9 Chronic obstructive pulmonary disease, unspecified; I50.9 Heart failure, unspecified; M19.90 Unspecified osteoarthritis, unspecified site; R11.2 Nausea with vomiting, unspecified; I11.0 Hypertensive heart disease with heart failure; I48.91 Unspecified atrial fibrillation; R19.7 Diarrhea, unspecified
CPT/HCPCS: 71010; 71045; 80048; 80053; 80069; 80076; 80162; 81001; 83520; 83605; 83735; 83880; 84145; 84443; 84484; 85025; 85610; 85730; 87040; 87086; 90765; 90766; 90775; 93005; 93306; 96365; 96366; 96375; 99291; J0696; J1160; J1940